=== PATIENT | male | born 1975 | race African-American/Black ===

== ENCOUNTER 2021-09-16 17:24 | Emergency (ER) | payer BC ==
[2021-09-16 17:39] VITALS: BP 142/77; PULSE 78; TEMP 98.9; BMI 30.6
[2021-09-18 05:06] LABS: SARS-CoV-2 NAA Detected (Not Detected)
== END 2021-09-16 18:00 | disposition home or self-care (01) ==
LOC: FER 17:24
DX: Z11.52 Encounter for screening for COVID-19 (principal)
CPT/HCPCS: 87804; 99283-25; C9803; U0003; U0005

== ENCOUNTER 2022-11-09 20:29 | Emergency (ER) | payer BC ==
[2022-11-09] MEDS ORDERED: KETOROLAC TROMETHAMINE 60 MG/2 ML VIAL IM ONE (20:33)
[2022-11-09] MEDS ORDERED: KETOROLAC TROMETHAMINE 60 MG/2 ML VIAL ONE (20:34)
[2022-11-09 20:56] VITALS: BP 147/88; PULSE 80; RESP 18; TEMP 99.5
[2022-11-09] MEDS ORDERED: LIDOCAINE HCL 2% (20ML MULTI-DOSE VIAL) ONE (21:24)
[2022-11-09] MEDS ORDERED: methylPREDNISolone ACET (DEPO) 40 MG/1 ML VIAL ONE (21:24)
== END 2022-11-09 22:10 | disposition home or self-care (01) ==
LOC: FER 20:29
PROC: 3E0233Z Introduction of Anti-inflammatory into Muscle, Percutaneous Approach (ICD-10-PCS; principal; 2022-11-09)
DX: M25.562 Pain in left knee (principal)
CPT/HCPCS: 73562-TC-LT-FY; 99284-25